=== PATIENT | female | born 1980 | race Caucasian/White ===

== ENCOUNTER 2018-03-31 10:34 | Observation (INO) | payer OTHER, SELFPAY ==
--- NOTE | 2018-03-31 11:42 | CT ---
HEAD CT WITHOUT CONTRAST: Date: 03/31/18 HISTORY: Left arm tingling. Chest pain. COMPARISON: None. FINDINGS: No parenchymal hemorrhage. No extra-axial hematoma. No midline shift. Basilar cisterns are patent. Br ain volume, age-appropriate. Cortical oreilly-white matter differentiation preserved. Ventricles and sul ci are patent and symmetric. Calvarium is intact. Adequate aeration of the sinuses and mastoid air ce lls. IMPRESSION: No acute intracranial process. POS: [facility]
--- NOTE | 2018-03-31 11:43 | RAD ---
RADIOGRAPH CHEST 1 VIEW: HISTORY: 38-year-old female with chest pain. FINDINGS: The visualized lung donato are clear. The cardiomediastinal silhouette and hilar shadows are normal. The lateral costophrenic angles are sharp. There is no pneumothorax. IMPRESSION: Negative. jn R POS: [facility]
[2018-03-31 11:46] LABS: #Lymphocytes 1.1 thou/uL (1.20-3.40); #Monocytes 0.4 thou/uL (0.11-0.59); #Neutrophils 2.9 thou/uL (1.40-6.50); %Basophils 0.7 % (0.0-1.0); %Eosinophils 0.7 % (0.0-10.0); %Lymphocytes 24.6 % (21.0-51.0); %Monocytes 8.5 % (0.0-10.0); %Neutrophils 65.6 % (42.0-75.0); Hemoglobin 11.3 g/dL (12.0-16.0); Mean Corpuscular HGB CONC 32.5 g/dL (32.0-36.0); Mean Corpuscular Hemoglobin 27.4 pg (27.0-31.0); Mean Corpuscular Volume 84.3 fL (78.0-98.0); Mean Platelet Volume 9.1 fL (7.4-10.4); Platelet Count 214 thou/uL (130-400); RBC Distribution Width 13.8 % (11.5-14.5); Red Blood Cell (RBC) Count 4.11 mill/uL (4.20-5.40); White Blood Cell (WBC) Count 4.5 thou/uL (4.8-10.8)
[2018-03-31 12:09] LABS: ALT (SGPT) 8 U/L (8-55); AST (SGOT) 11 U/L (5-34); Albumin 4.3 g/dL (3.5-5.0); Alkaline Phosphatase 56 U/L (40-150); Anion Gap 12 mmol/L (10-20); BUN (Urea Nitrogen) 11 mg/dL (7.0-18.7); Bilirubin, Total 0.7 mg/dL (0.2-1.2); CK (CPK) 35 U/L (29-168); Calc. Creatinine Clearance 0 mL/min (70-130); Calcium 9.5 mg/dL (7.8-10.44); Carbon Dioxide 23 mmol/L (22-29); Chloride 108 mmol/L (98-107); Estimated GFR-MDRD 86; Globulin 3.2 g/dL (2.4-3.5); Glucose 89 mg/dL (70-105); Potassium 3.9 mmol/L (3.5-5.1); Protein, Total 7.5 g/dL (6.0-8.3); Sodium 139 mmol/L (136-145)
[2018-03-31] MEDS ORDERED: Aspirin Chewable 81 MG TAB ONE (12:55)
[2018-03-31] MEDS ORDERED: Zolpidem Tartrate 5 MG TAB PO PRN (12:56)
[2018-03-31] MEDS ORDERED: Ondansetron PF 4 MG/2 ML Vial IVP PRN (12:56)
[2018-03-31 15:56] VITALS: BMI 28.8
--- NOTE | 2018-03-31 16:20 | PDOC.EVN ---
Event Note - Event Note Event Note: H&P dictated # [id number] TIA r/o CVA Neuro work up dc in AM if negative
--- NOTE | 2018-03-31 16:25 | MRI ---
MRI OF BRAIN WITHOUT CONTRAST: 03/31/18 HISTORY: Evaluate for CVA. Stroke-like symptoms. COMPARISON: None. FINDINGS: No hemorrhage on the axial gradient echo sequence. No parenchymal mass, mass effect or midline shift. Brain volume is age appropriate. Cortical oreilly-whi te matter differentiation is preserved. No evidence of hydrocephalus. Central arterial flow voids are maintained. Absent restricted diffusion . No significant T2 or FLAIR white matter hyperintensity. The calvarium has a normal marrow signal intensity. Midline brain parenchymal structures are unremark able. Adequate aeration of the sinuses and mastoid air cells. IMPRESSION: Absent restricted diffusion. No acute infarction. POS: [facility]
[2018-03-31] MEDS: Acetaminophen 325 MG TAB PO PRN ×2 (16:29→23:44)
--- NOTE | 2018-03-31 19:13 | HP ---
CHIEF COMPLAINT: Left-sided facial and arm numbness. HISTORY OF PRESENT ILLNESS: This is a 38-year-old female, who presented to the hospital with left-sided upper extremity weakness as well as left-sided facial numbness. The patient stated that the patient's discomfort and complaint started this morning. Denies any nausea, vomiting, diarrhea, constipation, chest pain, chills, or shortness of breath. The patient states that she does not have any other associated symptoms or aggravating factors. Denies that this ever happened in the past. The patient states that she otherwise has no other pain pattern that she has noted during this complaint. She states that she does not have any new changes in her medications or that she does not have any [id number] prescription medications that she is taking. The patient otherwise is stable. REVIEW OF SYSTEMS: All systems reviewed. Pertinent positives in HPI, otherwise negative. PAST MEDICAL HISTORY: None. SOCIAL HISTORY: Denies any smoking or drinking. FAMILY HISTORY: None. MEDICATIONS: See MAR. PHYSICAL EXAMINATION: VITAL SIGNS: Blood pressure is 110/74, O2 saturation 98% on room air, pulse of 65, respirations 18, and temperature of 98.5. GENERAL: The patient is lying in bed, in no acute discomfort. HEENT: Pupils are equal, round, and reactive to light and accommodation. Extraocular muscles intact. Oral cavity moist and pink. PULMONARY: Clear to auscultation bilaterally. No increase in AP diameter. No respiratory distress. CARDIOVASCULAR: Regular rate and rhythm. S1 and S2. No murmurs, rubs, or gallops appreciated. ABDOMEN: Positive bowel sounds. Soft, nontender, mobile. EXTREMITIES: 2+ peripheral pulses. No edema noted. DIAGNOSTIC DATA: Lab-mabry, the patient had a CT scan done, which was negative. CBC within normal limits. BMP within normal limits. ASSESSMENT AND PLAN: Transient ischemic attack, rule out cerebrovascular accident. Admit to ARBs. Neurological workup. We will obtain an MRI, carotid ultrasounds, echo as well as start antiplatelets. Per protocol, we will get PT, OT evaluation, however, this is likely not going to yield anything. We will likely discharge the patient tomorrow morning if workup negative. Case and plan discussed with the patient at length. She understands and agrees with this plan. Job ID: [id number]
[2018-03-31] MEDS ORDERED: Atorvastatin Calcium 40 MG TAB PO SCH (21:00)
[2018-04-01 05:23] LABS: #Basophils 0.1 thou/uL (0.0-0.2); #Eosinphils 0.1 thou/uL (0.0-0.7); #Lymphocytes 1.7 thou/uL (1.20-3.40); #Monocytes 0.5 thou/uL (0.11-0.59); #Neutrophils 1.9 thou/uL (1.40-6.50); %Basophils 1.2 % (0.0-1.0); %Eosinophils 1.4 % (0.0-10.0); %Lymphocytes 40.2 % (21.0-51.0); %Monocytes 11.3 % (0.0-10.0); %Neutrophils 45.9 % (42.0-75.0); Hemoglobin 10.3 g/dL (12.0-16.0); Mean Corpuscular HGB CONC 32.3 g/dL (32.0-36.0); Mean Corpuscular Hemoglobin 27.4 pg (27.0-31.0); Mean Platelet Volume 9.1 fL (7.4-10.4); Platelet Count 171 thou/uL (130-400); RBC Distribution Width 13.7 % (11.5-14.5); Red Blood Cell (RBC) Count 3.76 mill/uL (4.20-5.40); White Blood Cell (WBC) Count 4.2 thou/uL (4.8-10.8)
[2018-04-01 05:44] LABS: Anion Gap 9 mmol/L (10-20); BUN (Urea Nitrogen) 14 mg/dL (7.0-18.7); Calc. Creatinine Clearance 131 mL/min (70-130); Calcium 8.9 mg/dL (7.8-10.44); Carbon Dioxide 24 mmol/L (22-29); Cardiac Risk 3.3 (Less than 4.5); Chloride 110 mmol/L (98-107); Cholesterol 134 mg/dl (< 200 Desired); Estimated GFR-MDRD 88; Glucose 89 mg/dL (70-105); HDL Cholesterol 41 mg/dL (>60 Neg Risk); LDL Cholesterol, Calculated 83 mg/dL; Potassium 3.9 mmol/L (3.5-5.1); Sodium 139 mmol/L (136-145); Triglycerides 50 mg/dL (Less than 150)
[2018-04-01 07:42] VITALS: BP 99/60; TEMP 99.3
[2018-04-01] MEDS ORDERED: Aspirin 81 mg Enteric Coated Tablet PO SCH (09:00)
[2018-04-01] MEDS ORDERED: Enoxaparin Sodium 40 MG/0.4 ML SYRINGE SC SCH (09:00)
--- NOTE | 2018-04-01 10:30 | PDOC.EVN ---
Event Note - Event Note Event Note: This is a work release note for Jaimie Rodriguez Patient admitted: 03/31/2018 Patient discharged: 04/01/2018 The patient was admitted to [facility] for medical care. Patient is cleared to return to work on 04/03/2018. Please call the hospital for more information or any questions. Sincerely, Dr. Bartolo Lees Internal Medicine/Nephrology [facility]
--- NOTE | 2018-04-01 10:32 | PDOC.EVN ---
Event Note - Event Note Event Note: DC SUMMARY [id number]
--- NOTE | 2018-04-01 15:05 | DIS ---
DATE OF ADMISSION: 03/31/2018 DATE OF DISCHARGE: 04/01/2018 ADMITTING COMPLAINT: Left upper extremity weakness, numbness, and tingling. Left facial numbness and tingling. DISCHARGE DIAGNOSIS: Transient ischemic attack, symptoms resolved. HISTORY OF PRESENT ILLNESS: This is a 38-year-old female, who was admitted to Internal Medicine Team complaining of left facial numbness as well as left upper extremity numbness. The patient was admitted to Internal Medicine Team and was monitored on the observation unit and then stroke unit telemonitoring did not show any dysrhythmic patterns. She did have some bouts of sinus tach; however, no atrial fibrillation or flutter noted. CT scan, chest x-ray, and brain MRI were all normal. The patient also had an echocardiogram performed. At the point in time of discharge, the patient said her symptoms had resolved. She denied any nausea, vomiting, diarrhea, constipation, chest pain, fevers, or shortness of breath. the patient was given aspirin as well as medication prescription for atorvastatin. The patient is to follow up within one week with her PCP. DISPOSITION: Home. FOLLOWUP: PCP within 1 week. PROGNOSIS: Good. CONDITION: Stable. MEDICATIONS: See MAR. ACTIVITY: As tolerated with assistance as needed. DIET: Low-fat, low-calorie, high-fiber diet. Case and plan discussed with the patient and family at length, they understand and agree with this plan. Job ID: [id number]
== END 2018-04-01 11:19 | disposition home or self-care (01) ==
LOC: ERS 10:34 → 2SE 15:07
PROVIDERS: ADMIT Internal Medicine; ATTEND Internal Medicine
DX: G45.9 Transient cerebral ischemic attack, unspecified (principal); R07.9 Chest pain, unspecified
CPT/HCPCS: 36415; 70450; 70551; 71045; 80048; 80053; 80061; 82550; 84484; 85025; 93005; 93306; 96372; G0378; J1650

== ENCOUNTER 2018-06-22 21:08 | Emergency (ER) | payer SELFPAY | END 2018-06-22 22:32 | disposition home or self-care (01) | LOC: ERS 21:08 | DX: L03.116 Cellulitis of left lower limb (principal) | CPT/HCPCS: 99283 ==

== ENCOUNTER 2023-01-19 12:33 | Outpatient (CLI) | payer OTHER | END 2023-01-19 12:34 | disposition home or self-care (01) | LOC: BICMAMMO 12:33 | DX: Z12.31 Encounter for screening mammogram for malignant neoplasm of breast (principal); Z80.3 Family history of malignant neoplasm of breast | CPT/HCPCS: 77063; 77067 ==